=== PATIENT | female | born 1960 | race Caucasian/White ===

== ENCOUNTER → 2016-02-26 17:14 | Outpatient (CLI) | payer OTHER ==
[2010-01-06 06:12] VITALS: BMI 29.9
== END | disposition home or self-care (01) ==
LOC: D.MAMMO 08:00
DX: Z12.31 Encounter for screening mammogram for malignant neoplasm of breast (principal)

== ENCOUNTER → 2018-03-28 19:16 | Outpatient (CLI) | payer OTHER ==
[2010-01-06 06:12] VITALS: BMI 29.9
== END | disposition home or self-care (01) ==
LOC: D.MAMMO 08:00
DX: Z12.31 Encounter for screening mammogram for malignant neoplasm of breast (principal)